=== PATIENT | female | born 1980 | race Caucasian/White ===

== ENCOUNTER 2017-05-25 07:01 | Day surgery (SDC) | payer OTHER ==
[~2017-05-25] VITALS: Ht 170.2 cm; Wt 59.0 kg
[2017-05-25] VITALS (7 sets, daily range): BP systolic 97–127; BP diastolic 60–80
[~2017-05-25 07:01] MED LIST: LR 1000ml 1,000 ML IVLG SCH
[2017-05-25] MEDS ORDERED: CELEXA20 MG ORAL (08:01)
[2017-05-25] MEDS ORDERED: ATIVAN0.5 MG ORAL (08:01)
[2017-05-25] MEDS ORDERED: KLONOPIN0.5 MG ORAL (08:01)
[2017-05-25] MEDS ORDERED: LAMICTAL150 MG ORAL (08:01)
[2017-05-25] MEDS ORDERED: NORCO 5-325 TA1 EACH ORAL (08:02)
--- NOTE | 2017-05-25 09:34 | Immediate Post-Op Evaluation ---
Immediate Post-Op Evalulation Immediate Post-Op Evalulation Procedure: EGD and colonoscopy Date of Evaluation: May 25, 2017 Time of Evaluation: 10:26 IV Fluids: 500 Blood Products: 0 Estimated Blood Loss: 0 Urinary Output: 0 Blood Pressure Systolic: 106 Blood Pressure Diastolic: 64 Pulse Rate: 67 Respiratory Rate: 16 O2 Sat by Pulse Oximetry: 100 Temperature (Fahrenheit): 97.8 Pain Score (1-10): 0 Nausea: No Vomiting: No Complications 0 Patient Status: awake, reacts, patent, none Hydration Status: adequate Drug: N/A TAL LARA M.D. May 25, 2017 09:34
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
--- NOTE | 2017-05-25 09:34 | Short Stay Surgery H&P ---
History of Present Illness History of Present Illness Chief Complaint Abdominal pains/rectal bleeding/GERDs HPI Shahid Lindsey is a 37 year old female who was admitted on for Abdominal Pain, Gerds/rectal bleed Patient History Allergies: Coded Allergies: PHENYTOIN (Verified Allergy, Severe, 05/25/17) more seizures PAST MEDICAL HISTORY: Past Surgeries: (1) H/O foot surgery Social History: Medication History Scheduled Citalopram Hydrobromide* (Celexa*), 40 MG ORAL DAILY, (Reported) Clonazepam* (Klonopin*), 0.5 MG ORAL DA, (Reported) Lamotrigine* (Lamictal*), 150 MG ORAL TWICE A DAY, (Reported) Scheduled PRN Hydrocodone Bit/Acetaminophen 5-325* ([place] 5-325*), 1 TAB ORAL Q4H PRN for For Pain, (Reported) Miscellaneous Medications Lorazepam* (Ativan*), 0.5 MG ORAL, (Reported) Review of Systems Cardiovascular: Reports: no symptoms Respiratory: Reports: no symptoms, other Skeletal: Reports: trauma Gastrointestinal: Reports: gastro esophageal reflux disease Genitourinary: Reports: other Neurologic: Reports: seizure Endocrine: Reports: no symptoms Hematologic: Reports: no symptoms Physical Exam Vital Signs Last Vital Signs Date Time Temp Pulse Resp B/P (MAP) Pulse Ox O2 Delivery O2 Flow Rate FiO2 05/25/17 08:07 97.8 72 20 127/80 98 Room Air Labs Laboratory Tests Test 05/25/17 07:20 Urine HCG, Qualitative Negative Skin: normal HENT: normal Heart: normal Lungs: normal Abdomen: abnormal Extremities: normal Genitourinary: normal Plan Plan of Care Upper and lower GI endoscopy Preop Interventions None. Summary of Findings See the reports Final Diagnosis: Attestation Are the patient's medical conditions optimized for surgery? Attestation Response: yes SUNDAY PATTERSON May 25, 2017 09:34
[2017-05-25] MEDS ORDERED: LR 1000ml 1,000 ML IVLG SCH (09:35)
--- NOTE | 2017-05-25 09:35 | Pre-Procedure Note/Attestation ---
Pre-Procedure Note/Attestation Complete Prior to Procedure Planned Procedure: left Procedure Narrative: The examination of the upper and the lower GI tract through endoscopy. Indications for Procedure Pre-Operative Diagnosis: R/O colitis/ Ulcer Attestation I attest that I discussed the nature of the procedure; its benefits; risks and complications; and alternatives (and the risks and benefits of such alternatives ), prior to the procedure, with the patient (or the patient's legal account retention representative). I attest that, if there was a reasonable possibility of needing a blood transfusion, the patient (or the patient's legal account retention representative) was given the [place] Department [employer] Services standardized written summary, pursuant to the [place] Blood Safety Act ([place] Health and Safety Code # 1645, as amended). I attest that I re-evaluated the patient just prior to the surgery and that there has been no change in the patient's H&P, except as documented below: LEONARDO,SAID May 25, 2017 09:35
--- NOTE | 2017-05-25 09:35 | 48 Hour Post Anesthesia Eval ---
Post Anesthesia Evaluation Procedure: EGD and colonoscopy Date of Evaluation: May 25, 2017 Airway: patent Nausea: No Vomiting: No Pain Intensity: 0 Hydration Status: adequate Cardiopulmonary Status: at baseline Mental Status/LOC: patient returned to baseline Post-Anesthesia Complications: 0 Follow-up care needed: ready to discharge TAL LARA M.D. May 25, 2017 09:35
[2017-05-25] MEDS ORDERED: Midazolam 2mg/2ml Inj IVP PRN (09:45)
[2017-05-25] MEDS ORDERED: fentaNYL 100 mcg/2 mL IV PRN (09:45)
[2017-05-25] MEDS ORDERED: Midazolam 2mg/2ml Inj ONE (09:45)
[2017-05-25] MEDS ORDERED: LR 1000ml ONE (09:45)
[2017-05-25] MEDS ORDERED: Hydromorphone 0.5mg/0.5ml inj IVP PRN (09:45)
[2017-05-25] MEDS ORDERED: Propofol 200mg/20ml IV ONE (09:45)
[2017-05-25] MEDS ORDERED: DiphenhydrAMINE 50mg/ml Inj IVP PRN (09:45)
--- NOTE | 2017-05-25 10:14 | Endoscopy Procedure Note ---
Endoscopy Procedure Note Procedures Performed: EGD - Generalized gastritis, biopsy wsa taken from gastric body per random., colonoscopy - Grade IV hemorrhoids otherwise completely normal total colonoscopy. Specimen: yes Pt Tolerated Procedure Well: Yes Estimated Blood Loss: none Anesthesiologist: Dr. Vidales Anesthesia: moderate sedation Medication Given: see anesthesia record Implant(s) used?: No 50 yrs or older w/o bx or poly: No 10yrs. F/U not recommended: No If not recommended, why?: 10 yrs. F/U needed: No 18 years or older w/prev. colo: No Med reason:<3 yrs.: System Reason:<3 yrs.: Last colonoscopy >= to 3yrs: No SUNDAY PATTERSON May 25, 2017 10:14
--- NOTE | 2017-05-25 10:15 | Discharge Instructions ---
Discharge Instructions Discharge Instructions Follow up with: Visit the doctor after two weeks in office For Congestive Heart Failure Reminder Report to your physician any weight gain of 5 pounds or more in one week. SUNDAY PATTERSON May 25, 2017 10:15
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
--- NOTE | 2017-05-25 20:30 | Procedure Note ---
DATE OF PROCEDURE: 05/25/2017 SURGEON: Veronique Loaiza M.D. PROCEDURE: Esophagogastroduodenoscopy with biopsy. REFERRING PHYSICIAN: This patient was referred by Dr. Villasenor. PREOPERATIVE DIAGNOSES: Abdominal pain, heartburn, nausea, vomiting, and rule out peptic ulcer disease. POSTOPERATIVE DIAGNOSES: Generalized gastritis. A biopsy was taken from gastric body per random. MEDICATIONS USED: Per Dr. Vidales, anesthesiologist. INSTRUMENT: GIF Olympus upper GI video endoscope. DESCRIPTION OF PROCEDURE: The patient, after arriving in endoscopy unit, was told about risks and benefits of the procedure, which she accepted and signed informed consent. She was then put in the left lateral decubitus position. After adequate IV sedation, the scope was gently passed through the cricopharyngeal area, was lodged into the upper esophagus, and gradually advanced towards gastroesophageal junction. The entire length of the esophagus looked normal. No evidence of varices, inflammatory process, ulceration, stricture, etc., was found. GE junction also looked normal and no evidence of Zurita's or hiatal hernia noted. At this time, the scope was advanced into the stomach. Gastric cavity was distended and gradually the areas of the fundus and the body and the antrum were examined endoscopically. There was evidence of mild/moderate inflammatory process presenting with erythema and occasional specks of blood clots of 1 mm size in the body of the stomach suggesting underlying gastritis. One random biopsy from gastric body obtained. Subsequently, the scope was passed through the pylorus. First and second portions of the duodenum were found to be completely normal. At this time, the scope was pulled back into the stomach. A retroflexion maneuver, which was applied, did not reveal any pathology over the GE junction. Finally, the scope was pulled out. The procedure was terminated. The patient tolerated the procedure well. Veronique Loaiza M.D. DR: Elizabeth JOB#: [id number] CC:
--- NOTE | 2017-05-25 20:45 | Procedure Note ---
DATE OF PROCEDURE: 05/25/2017 REFERRING PHYSICIAN: Dr. Villasenor. PROCEDURE: Total colonoscopy. SURGEON: Veronique Loaiza M.D. PREOPERATIVE DIAGNOSES: 1. Rectal bleeding. 2. Abdominal pain. 3. Diarrhea. POSTOPERATIVE DIAGNOSIS: Grade 4 hemorrhoids, otherwise, complete normal total colonoscopy. MEDICATION USED: Per Dr. Vidales, anesthesiologist. INSTRUMENT: GIF Olympus videocolonoscope. DESCRIPTION OF PROCEDURE: The patient, after arriving in the endoscopy unit, was told about risks and benefits of the procedure, which she accepted and signed the informed consent. At this time, she was put on the left lateral decubitus position. After adequate IV sedation, the scope was gently passed through the anal area, which revealed evidence of hemorrhoidal tags and internal hemorrhoids, which were prolapsed at outside consistent with grade 3/4 hemorrhoids. They were not friable, however. The scope was advanced into the rectum and retroflexion maneuver, which was also applied, did not reveal any pathology in the rectum. No tumor or polyps noted. No bleeding site noted. At this time, the scope was passed through highly redundant left colon reaching to the splenic flexure, transverse colon, hepatic flexure, and finally was guided into the right colon all the way to the base of the cecum. All these areas remained to be normal without any particular pathology found. The colon cleanup was adequate. At this time, after reaching to the base of the cecum within 7 minutes, the scope was gradually pulled out and re-evaluation of colon did not add anymore pathology. The patient finally tolerated the procedure well and left the endoscopy room in good condition. Veronique Loaiza M.D. DR: JAYY JOB#: [id number] CC:
== END 2017-05-25 11:35 | disposition home or self-care (01) ==
LOC: GAS 07:01
DX: K64.8 Other hemorrhoids (principal); K64.4 Residual hemorrhoidal skin tags; R19.7 Diarrhea, unspecified; G40.909 Epilepsy, unspecified, not intractable, without status epilepticus; Z91.012 Allergy to eggs; Z91.011 Allergy to milk products; Z91.010 Allergy to peanuts; Z88.8 Allergy status to other drugs, medicaments and biological substances; Z91.018 Allergy to other foods; F17.210 Nicotine dependence, cigarettes, uncomplicated; K21.9 Gastro-esophageal reflux disease without esophagitis; F32.9 Major depressive disorder, single episode, unspecified; F41.9 Anxiety disorder, unspecified; K29.70 Gastritis, unspecified, without bleeding
CPT/HCPCS: 43239; 45378; 81025; J2250; J2704; J7120; 94003; 94150

== ENCOUNTER 2018-03-12 18:29 | Emergency (ER) | payer OTHER ==
[~2018-03-12] VITALS: Ht 167.6 cm; Wt 68.0 kg
[~2018-03-12 18:29] MED LIST changes: +ATIVAN0.5 MG ORAL; +CELEXA20 MG ORAL; +KLONOPIN0.5 MG ORAL; +LAMICTAL150 MG ORAL; -LR 1000ml 1,000 ML IVLG SCH; +NORCO 5-325 TA1 EACH ORAL
[2018-03-12] MEDS ORDERED: FOLIC ACID1 MG ORAL (18:38)
[2018-03-12] MEDS ORDERED: ONFI10 MG PO (18:38)
[2018-03-12 18:39] VITALS: BP 131/90
[2018-03-12] MEDS ORDERED: IBUPROFEN800 MG ORAL (18:40)
[2018-03-12] MEDS ORDERED: Morphine Sulfate 4mg/ml Inj (IV USE ONLY) IVP ONE ×2 (19:00→20:15)
[2018-03-12 19:17] LABS: BASOPHILS % (AUTO) 1.1 % (0.0-2.0); EOSINOPHILS % (AUTO) 2.1 % (0.0-3.0); HEMATOCRIT 35.6 % (37.0-47.0); HEMOGLOBIN 12.9 G/DL (12.0-16.0); LYMPHOCYTES % (AUTO) 24.6 % (20.0-45.0); MEAN CORPUSCULAR VOLUME 93 FL (80-99); MONOCYTES % (AUTO) 6.6 % (1.0-10.0); NEUTROPHILS % (AUTO) 65.6 % (45.0-75.0); PLATELET COUNT 252 K/UL (150-450); RED BLOOD COUNT 3.84 M/UL (4.20-5.40); RED CELL DISTRIBUTION WIDTH 10.8 % (11.6-14.8); WHITE BLOOD COUNT 9.7 K/UL (4.8-10.8)
--- NOTE | 2018-03-12 19:25 | Emergency Room Report ---
History of Present Illness General Chief Complaint: Seizure Source: Patient, Medical Record Present Illness HPI Patient is a 38-year-old female brought in by EMS after a witnessed seizure. Patient had previous history of traumatic brain injury and had subsequent seizure disorder. The patient had been taking Lamictal, Onfi and Topamax. The patient witnessed seizure which was approximately the brief in duration. The patient was noted to have a headache. She had no recent trauma. Patient denies any fever. She reports having pain to the neck. She had prior history of neuropathy. Allergies: Coded Allergies: PHENYTOIN (Verified Allergy, Severe, 05/25/17) more seizures BENZODIAZEPINES (Unverified Allergy, Unknown, 03/12/18) LEVETIRACETAM (Unverified Allergy, Unknown, 03/12/18) OXCARBAZEPINE (Unverified Allergy, Unknown, 03/12/18) SULFA (SULFONAMIDE ANTIBIOTICS) (Unverified Allergy, Unknown, 03/12/18) TOPIRAMATE (Unverified Allergy, Unknown, 03/12/18) Patient History Past Medical History: see triage record Reviewed Nursing Documentation: PMH: Agreed; PSxH: Agreed Nursing Documentation-PMH Past Medical History: No History, Except For Hx Cardiac Problems: Yes Hx Hypertension: Yes - DURING SEIZURES Hx Cancer: No Hx Gastrointestinal Problems: Yes - INCONTINENT DUE TO ACCIDENT/CONSTIPATION Hx Neurological Problems: Yes - HX MIGRAINES-LAST EPISODE 1 MONTH AGO Hx Seizures: Yes Physical Exam Vital Signs Date Time Temp Pulse Resp B/P (MAP) Pulse Ox O2 Delivery O2 Flow Rate FiO2 03/12/18 18:30 98.5 70 16 152/102 100 Room Air 98.4 Medical Decision Making Diagnostic Impression: Primary Impression: Seizure ER Course patient presented for seizure.Differential diagnosis included medication withdrawal, hyponatremia,cysticercosis, electrolyte abnormality, mass lesion, or cranial hemorrhage.Because of complexity of patient's case laboratory testing and imaging studies were ordered.The patient was noted to have headache. She states she normally gets severe headaches after seizure and this is typical for prior seizures. Was given IV pain medications as well as nausea medication.The laboratory testing was unremarkable. The patient states that she normally has multiple seizures. Patient states she felt better want to go home.Patient is advised not to drive or operate heavy machinery until cleared by own physician. Patient was advised to return if any concerns. Labs Test 03/12/18 19:07 03/12/18 19:40 White Blood Count 9.7 K/UL (4.8-10.8) Red Blood Count 3.84 M/UL (4.20-5.40) Hemoglobin 12.9 G/DL (12.0-16.0) Hematocrit 35.6 % (37.0-47.0) Mean Corpuscular Volume 93 FL (80-99) Mean Corpuscular Hemoglobin 33.5 PG (27.0-31.0) Mean Corpuscular Hemoglobin Concent 36.1 G/DL (32.0-36.0) Red Cell Distribution Width 10.8 % (11.6-14.8) Platelet Count 252 K/UL (150-450) Mean Platelet Volume 6.3 FL (6.5-10.1) Neutrophils (%) (Auto) 65.6 % (45.0-75.0) Lymphocytes (%) (Auto) 24.6 % (20.0-45.0) Monocytes (%) (Auto) 6.6 % (1.0-10.0) Eosinophils (%) (Auto) 2.1 % (0.0-3.0) Basophils (%) (Auto) 1.1 % (0.0-2.0) Sodium Level 134 MMOL/L (136-145) Potassium Level 3.7 MMOL/L (3.5-5.1) Chloride Level 100 MMOL/L (98-107) Carbon Dioxide Level 25 MMOL/L (21-32) Anion Gap 9 mmol/L (5-15) Blood Urea Nitrogen 18 mg/dL (7-18) Creatinine 0.7 MG/DL (0.55-1.30) Estimat Glomerular Filtration Rate > 60 mL/min (>60) Glucose Level 100 MG/DL (74-106) Calcium Level 8.7 MG/DL (8.5-10.1) Total Bilirubin 0.3 MG/DL (0.2-1.0) Aspartate Amino Transf (AST/SGOT) 23 U/L (15-37) Alanine Aminotransferase (ALT/SGPT) 18 U/L (12-78) Alkaline Phosphatase 45 U/L (46-116) Total Protein 6.7 G/DL (6.4-8.2) Albumin 3.4 G/DL (3.4-5.0) Globulin 3.3 g/dL Albumin/Globulin Ratio 1.0 (1.0-2.7) Urine Color Pale yellow Urine Appearance Clear Urine pH 7 (4.5-8.0) Urine Specific [place] 1.015 (1.005-1.035) Urine Protein Negative (NEGATIVE) Urine Glucose (UA) Negative (NEGATIVE) Urine Ketones Negative (NEGATIVE) Urine Blood Negative (NEGATIVE) Urine Nitrite Negative (NEGATIVE) Urine Bilirubin Negative (NEGATIVE) Urine Urobilinogen Normal MG/DL (0.0-1.0) Urine Leukocyte Esterase Negative (NEGATIVE) Urine HCG, Qualitative Negative (NEGATIVE) Last Vital Signs Date Time Temp Pulse Resp B/P (MAP) Pulse Ox O2 Delivery O2 Flow Rate FiO2 03/12/18 18:39 70 16 Room Air 03/12/18 18:39 98.4 131/90 100 98.4 Status: improved Disposition: HOME, SELF-CARE Condition: Stable Bryson Ashton MD Mar 12, 2018 19:25
[2018-03-12 19:31] LABS: ANION GAP 9 mmol/L (5-15); BLOOD UREA NITROGEN 18 mg/dL (7-18); CALCIUM 8.7 MG/DL (8.5-10.1); CARBON DIOXIDE 25 MMOL/L (21-32); CHLORIDE 100 MMOL/L (98-107); CREATININE 0.7 MG/DL (0.55-1.30); POTASSIUM 3.7 MMOL/L (3.5-5.1); SODIUM 134 MMOL/L (136-145)
[2018-03-12 19:40] LABS: ALANINE AMINOTRANSFERASE 18 U/L (12-78); ALBUMIN 3.4 G/DL (3.4-5.0); ALKALINE PHOSPHATASE 45 U/L (46-116); ASPARTATE AMINO TRANSFERASE 23 U/L (15-37); BILIRUBIN,TOTAL 0.3 MG/DL (0.2-1.0)
[2018-03-12 19:55] VITALS: BP 108/63
[2018-03-12 19:55] LABS: APPEARANCE,URINE CLEAR; BILIRUBIN, URINE NEGATIVE (NEGATIVE); COLOR,URINE PALE YELLOW; GLUCOSE, URINE (UA) NEGATIVE (NEGATIVE); KETONES,URINE NEGATIVE (NEGATIVE); LEUKOCYTE ESTERASE ,URINE NEGATIVE (NEGATIVE); NITRITE,URINE NEGATIVE (NEGATIVE); PH,URINE 7 (4.5-8.0); PROTEIN,URINE NEGATIVE (NEGATIVE); UROBILINOGEN,URINE NORMAL MG/DL (0.0-1.0)
[2018-03-12] MEDS ORDERED: Metoclopramide 10mg/2ml Inj IVP ONE (20:15)
== END 2018-03-12 20:55 | disposition home or self-care (01) ==
LOC: EDBD 18:29 → EMR 20:23
DX: G40.909 Epilepsy, unspecified, not intractable, without status epilepticus (principal); Z86.79 Personal history of other diseases of the circulatory system; Z88.8 Allergy status to other drugs, medicaments and biological substances
CPT/HCPCS: 36415; 80053; 81003; 81025; 85025; 96374; 99284; J2270; J2405